=== PATIENT | male | born 2000 | race Caucasian/White ===

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

== ENCOUNTER 2023-09-18 16:26 | Emergency (ER) | payer OTHER ==
[2023-09-18 16:32] VITALS: BP 149/89; PULSE 72; RESP 20; TEMP 97.6; BMI 22.0
[2023-09-18] MEDS ORDERED: IBUPROFEN 600 MG TABLET (FP) PO ONE (17:50)
[2023-09-18] MEDS: IBUPROFEN 600 MG TABLET (FP) PO ONE (17:52)
== END 2023-09-18 18:06 | disposition home or self-care (01) ==
LOC: JERFT 16:26
DX: S93.401A Sprain of unspecified ligament of right ankle, initial encounter (principal); X50.1XXA Overexertion from prolonged static or awkward postures, initial encounter; Y93.67 Activity, basketball
CPT/HCPCS: 73610-TC-RT-FY; 73630-TC-RT-FY; 99283-25